=== PATIENT | female | born 2005 | race Caucasian/White ===

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

== ENCOUNTER 2023-11-17 15:58 | Emergency (ER) | payer MEDICAID, SELFPAY ==
[2023-11-17 16:01] VITALS: BP 102/64; PULSE 105; RESP 20; TEMP 37.3; O2SAT 96
--- NOTE | 2023-11-17 16:11 | ED.GENADUL_ITS ---
Discharge Plan Disposition Patient Disposition: Home Condition: Stable Discharge Details Clinical Impression: Cerumen impaction Primary Care Provider: Unknown,Unknown ED Provider: Yuli Duffy Home Meds and New Rx's Prescriptions: No Action No Known Home Meds Discharge Instructions Additional Instructions: You have buildup of wax in her ear You may use wkut-oct-zlueslj Debrox few times a month to help with buildup of wax and let warm water run into your ear Please return should you have new or worsening complaints Discharge Data Discharge Date/Time-TO BE ENTERED AT DEPARTURE: 11/17/23 17:10 HPI General Date/Time Provider Initiated Documentation: 11/17/23 16:02 . HPI Narrative: 18-year-old female presents with report of right ear with decreased hearing. Denies any pain or trauma. Denies any additional complaints at this time. Related Data Home Medications Medication Instructions Recorded Confirmed Unknown [No Known Home Meds] 08/05/17 11/11/20 Allergies Allergy/AdvReac Type Severity Reaction Status Date / Time No Known Allergies Allergy Unverified 01/03/22 13:38 General Stated Complaint: EarProblem JOSIAH: 4 Course Vital Signs Vital signs: Vital Signs Temperature 37.3 C 11/17/23 16:01 Pulse 105 H 11/17/23 16:01 Respiratory Rate 20 11/17/23 16:01 Blood Pressure 102/64 11/17/23 16:01 Pulse Oximetry 96 11/17/23 16:01 Temperature 37.3 C 11/17/23 16:01 Temperature Source Tympanic 11/17/23 16:01 Pulse 105 H 11/17/23 16:01 Respiratory Rate 20 11/17/23 16:01 Blood Pressure 102/64 11/17/23 16:01 Blood Pressure Position Sitting 11/17/23 16:01 Pulse Oximetry 96 11/17/23 16:01 Oxygen Delivery Method Room Air 11/17/23 16:01 Oxygen Flow Rate 0 11/17/23 16:01 Procedures FB Removal Ear Location: ear canal (R) Foreign Body Suspected: other (cerumen) TM intact pre-procedure: yes Foreign Body Removed: yes Foreign Body Removal Technique: irrigation Tympanic Membrane Intact: Yes Patient Tolerated Procedure: well Complications: none Medical Decision Making 18-year-old female presenting with diminished hearing to right ear which she noticed yesterday. Denies any pain, cerumen impaction noted. Irrigation was performed and tympanic membrane was intact pressed procedure, patient has improved hearing and is requesting discharge home. No evidence of infectious process. Discharged home in stable condition with stable vitals. No mastoid tenderness, tympanic membrane intact without erythema, uvula midline, oropharynx patent, no acute distress Quality:SDOH Health Related Social Needs: No Data to Display PFSH All Active Problems (Updated 11/17/23 @ 16:37 by VICKIE Keating) Cerumen impaction (Acute) Suicidal ideation (Acute) Homicidal ideation (Acute) Depression (Chronic) Social History Smoking/Tobacco Use Status: Never Smoking risk assessment performed?: Yes Alcohol Intake: never Drug use: Never Substance use type: does not use Do you feel safe at home: Yes Do you feel safe in your relationship?: Yes
[2023-11-17 16:40] VITALS: BP 102/64; PULSE 100; RESP 20; TEMP 37.3; O2SAT 96
[2023-11-17 17:06] VITALS: BP 102/64; PULSE 80; RESP 16; TEMP 37.3; O2SAT 98
== END 2023-11-17 17:10 | disposition home or self-care (01) ==
PROVIDERS: Emergency Provider Physician Assistant
DX: H91.8X1 Other specified hearing loss, right ear (principal); H61.21 Impacted cerumen, right ear
CPT/HCPCS: 69209

== ENCOUNTER 2024-11-19 17:08 | Emergency (ER) | payer BC, SELFPAY ==
[2024-11-19 17:22] VITALS: BP 108/70; PULSE 82; RESP 16; TEMP 36.6; O2SAT 98
[2024-11-19 18:20] VITALS: BP 108/66; PULSE 82; RESP 18; TEMP 36.6; O2SAT 99
[2024-11-19 19:05] VITALS: BP 108/66; PULSE 82; RESP 18; TEMP 36.6; O2SAT 99
[2024-11-19 19:08] VITALS: RESP 18
[2024-11-19 19:09] VITALS: RESP 18
--- NOTE | 2024-11-19 20:16 | W.ED.GENAD ---
Discharge Plan Disposition Patient Disposition: Home Condition: Stable Discharge Details Clinical Impression: Upper respiratory infection Primary Care Provider: Sonia Mcarthur ED Provider: Yuli Duffy Home Meds and New Rx's Prescriptions: Continued acetaminophen [Tylenol Extra Strength] 500 mg tablet 1,000 mg PO Q6H PRN levonorgestrel-ethinyl estrad [Lessina] 0.1-20 mg-mcg tablet 1 tab PO DAILY Patient Comments: TAKE 1 TABLET BY MOUTH DAILY CONTINUOUSLY. SKIP PLACEBO WEEK Discharge Instructions Instructions: Upper respiratory infection in adults - Discharge instructions Additional Instructions: Take Sudafed and Motrin and Tylenol for congestion and discomfort Increase fluids Hot tea Please be reevaluated should your symptoms last longer than additional week or should you develop fever or chills Stand Alone Forms: Work Release Discharge Data Discharge Date/Time-TO BE ENTERED AT DEPARTURE: 11/19/24 20:23 HPI General Date/Time Provider Initiated Documentation: 11/19/24 18:29. HPI Narrative: 19-year-old female with upper respiratory symptoms for 1 week. Severe congestion prevented work attendance today. No chest pain, shortness of breath, or potential . Related Data Home Medications ?Medication ?Instructions ?Recorded ?Confirmed acetaminophen 500 mg tablet 1,000 mg PO Q6H PRN 12/30/23 11/19/24 (Tylenol Extra Strength) levonorgestrel-ethinyl estradiol 1 tab PO DAILY 11/19/24 11/19/24 0.1 mg-20 mcg tablet (Lessina) Allergies Allergy/AdvReac Type Severity Reaction Status Date / Time No Known Allergies Allergy Verified 11/19/24 17:26 General Stated Complaint: GenMedical JOSIAH: 4 Exam Narrative Exam Narrative: General Appearance: Alert and oriented. Vital signs: Within normal limits. HEENT: Boggy nasal mucosa, patent oropharynx, midline uvula. Respiratory: Lungs clear to auscultation. Skin: No rashes or lesions. Neurological: Normal. Course Vital Signs Vital signs: Vital Signs Temperature 36.6 C 11/19/24 17:22 Pulse 82 11/19/24 17:22 Respiratory Rate 16 11/19/24 17:22 Blood Pressure 108/70 11/19/24 17:22 Pulse Oximetry 98 11/19/24 17:22 Temperature 36.6 C 11/19/24 19:05 Temperature Source Oral 11/19/24 19:05 Pulse 82 11/19/24 19:05 Respiratory Rate 18 11/19/24 19:09 Respiratory Effort Normal, Short of Breath 11/19/24 19:09 Respiratory Depth Normal 11/19/24 19:09 Respiratory Pattern Normal 11/19/24 19:09 Blood Pressure 108/66 11/19/24 19:05 Blood Pressure Mean 80 11/19/24 18:20 Pulse Oximetry 99 11/19/24 19:05 Oxygen Delivery Method Room Air 11/19/24 19:05 Oxygen Flow Rate 0 11/19/24 18:20 Pain Level 0 11/19/24 19:05 Lab/Test Results Lab/Test Results: POC Strep Test-KENNETH(Rapid) Start: 11/19/24 18:57 Freq: .Rapid Strep Test Status: Active Protocol: Document 11/19/24 19:27 MG (Rec: 11/19/24 19:27 MG [id number]) Strep test-KENNETH(Rapid)-POC POC-Strep test-KENNETH (Rapid) Negative POC-Strep test-KENNETH (Rapid) Negative Medical Decision Making Initial Assessment: 19-year-old female with upper respiratory symptoms for the past week. Denies chest pain, shortness of breath, and . Alert and oriented on arrival. Boggy nasal mucosa, lungs clear to auscultation, oropharynx patent, uvula midline, skin without rashes or lesions. ED Course: - Supplied with a work note. - Recommended sbnw-roi-jvvgrio cough and cold therapies. - Advised to seek reevaluation if symptoms worsen. Final Assessment: Patient presented with upper respiratory symptoms and was evaluated. Provided with a work note and recommended njmr-aar-nopgtxm cough and cold therapies. Advised to seek reevaluation if symptoms worsen. Clinical Impression: - Upper respiratory infection Disposition: - Discharge Patient Education: Encouraged to use pdzr-[id number]-[id number] cough and cold therapies and to seek reevaluation if new or worsening complaints occur. MDM Components Evaluation: - Number of Differential Diagnoses or Management Options: Upper respiratory infection - Amount and Complexity of Data Reviewed: Physical examination findings - Risk of Complication and Morbidity or Mortality: Low risk based on current symptoms and treatment plan. Quality:SDOH Health Related Social Needs: Health related social needs details na PFSH All Active Problems (Updated 11/19/24 @ 20:17 by VICKIE Keating) Upper respiratory infection (Acute) Patellofemoral pain syndrome of left knee (Acute ~12/2023) 01/27/24 Dr Nunes at [facility] Suicidal ideation (Acute) Homicidal ideation (Acute) Depression (Chronic) Family History (Updated 12/09/23 @ 11:16 by Esthela Almaguer) Mother Anxiety Asthma Depression Maternal Grandmother Anxiety Cancer Diabetes Father Anxiety Depression Maternal Grandfather Cancer Maternal Uncle Cancer Social History (Updated 12/09/23 @ 11:05 by Esthela Almaguer) Smoking/Tobacco Use Status: Never Second Hand Exposure: No Smoking risk assessment performed?: Yes Alcohol Intake: never Drug use: Daily Substance use type: does not use and marijuana Adopted: No Caregiver/Support person: No Foster care: No Household members: family Number of Children: 0 number of grandchildren: 0 Communication Needs: None Education Level: high school Do you need help understanding health information?: Rarely Pets and animals: No (1) Sexually active: Yes Do you think of yourself as: straight/heterosexual Current gender identity: female What is your relationship status?: never How often do you talk on the phone with friends or family?: three or more times per week How often do you get together with friends or relatives?: never Do you belong to any clubs or organized social groups?: no Panel score (0-1 are the most socially isolated patients): 1 Duration: < 15 minutes/day Frequency: 3-4 times per week Special deanna needs: No Seatbelt use: always Helmet use: Yes Helmet use: sometimes Drive intox or ride w/intox garbage collector driver: No Do you feel safe at home: Yes Do you feel safe in your relationship?: Yes
[2024-11-19 20:22] VITALS: BP 110/68; PULSE 80; RESP 18; O2SAT 99
== END 2024-11-19 20:23 | disposition home or self-care (01) ==
PROVIDERS: Emergency Provider Physician Assistant; PCP Nurse Practitioner
DX: J06.9 Acute upper respiratory infection, unspecified (principal)
CPT/HCPCS: 87426; 87880; 99283